=== PATIENT | female | born 1970 | race Two or more races ===

== ENCOUNTER 2025-06-10 13:57 | Emergency (ER) | payer MEDICAID ==
[~2025-06-10] VITALS: Ht 152.4 cm; Wt 90.7 kg
[2025-06-10] MEDS ORDERED: MECLIZINE HCL 25 MG TABLET ONE (14:42)
[2025-06-10] MEDS: MECLIZINE HCL 25 MG TABLET PO ONE (14:46)
[2025-06-10 14:47] LABS: PLATELET COUNT (AUTO) 234 K/uL (150-450); RED BLOOD CELL COUNT(AUTO) 4.12 MIL/uL (4.0-5.2); RED CELL DISTRIBUTION WIDTH 13.6 % (11.5-15.0); WHITE BLOOD COUNT (AUTO) 10.8 K/uL (4.3-11.0)
[2025-06-10 15:04] LABS: ASPARTATE AMINOTRANSFERASE 9.0 U/L (15-37); CALCIUM, SERUM 8.9 mg/dL (8.5-10.1); CREATININE 0.6 mg/dL (0.6-1.3); SODIUM SERUM 143.0 mmol/L (136-145); TOTAL PROTEIN, SERUM 7.1 g/dL (6.4-8.2); UREA NITROGEN, BLOOD 13.0 mg/dL (7-18)
[2025-06-10] MEDS ORDERED: KETOROLAC TROMETHAMINE 15 MG/ML VIAL ONE (16:57)
[2025-06-10] MEDS: KETOROLAC TROMETHAMINE 15 MG/ML VIAL IV ONE (16:59)
[2025-06-10] MEDS ORDERED: IBUP-1490 PO (16:59)
[2025-06-10] MEDS ORDERED: MECL-159 PO (16:59)
[2025-06-10 17:04] VITALS: BP 131/66; TEMP 98.1; O2SAT 97
== END 2025-06-10 17:05 | disposition home or self-care (01) ==
LOC: ER 13:57
DX: R42 Dizziness and giddiness (principal); E78.00 Pure hypercholesterolemia, unspecified
CPT/HCPCS: 99285; 96374; 70450; 96375; 93005; 85025; 80048; 80076; 36415; J1885; J8597; J1200; J7030